=== PATIENT | male | born 1965 | race Caucasian/White ===

== ENCOUNTER 2019-03-01 12:04 | Emergency (ER) | payer OTHER ==
--- NOTE | 2019-03-01 12:56 | ED ---
Psych HPI - General Chief Complaint: Psychiatric Symptoms Stated Complaint: Mental health Time Seen by Provider: 03/01/19 12:11 Source: patient, family, RN notes reviewed, old records reviewed Mode of arrival: ambulatory - History of Present Illness Initial Comments: Patient is a 53-year-old male who presents emergency Department today with complaints of anxiety depression. Reports his diagnosis of anxiety or depression. His been having symptoms of ache or phobia for many years. Patient states that he feels hopeless due to his severe anxiety. Patient denies any chest pains or shortness of breath or nausea vomiting or physical complaints. He was seen today at [facility] and later by mobile crisis unit who encouraged Patient to come in for evaluation. He denies any specific suicidal plan. Patient denies any other symptoms. - Related Data Home Medications Medication Instructions Recorded Confirmed Sarah Back And Body 3 tab PO Q12H PRN 03/01/19 03/01/19 Allergies Allergy/AdvReac Type Severity Reaction Status Date / Time Penicillins Allergy Unknown Verified 03/01/19 12:50 Childhood Review of Systems ROS Statement: Those systems with pertinent positive or pertinent negative responses have been documented in the HPI. ROS Other: All systems not noted in ROS Statement are negative. Past Medical History Past Medical History: No Reported History History of Any Multi-Drug Resistant Organisms: None Reported Past Surgical History: Orthopedic Surgery Additional Past Surgical History / Comment(s): Left leg, right knee Past Psychological History: Anxiety, Depression Smoking Status: Current every day smoker Past Alcohol Use History: Abuse, Daily Past Drug Use History: Marijuana General Exam - General Exam Comments Initial Comments: 53-year-old male. Alert and oriented. No significant distress. Limitations: no limitations General appearance: alert, in no apparent distress Head exam: Present: atraumatic, normocephalic, normal inspection Eye exam: Present: normal appearance, PERRL, EOMI. Absent: scleral icterus, conjunctival injection, periorbital swelling ENT exam: Present: normal exam, mucous membranes moist Neck exam: Present: normal inspection. Absent: tenderness, meningismus, lymphadenopathy Respiratory exam: Present: normal lung sounds bilaterally. Absent: respiratory distress, wheezes, rales, rhonchi, stridor Cardiovascular Exam: Present: regular rate, normal rhythm, normal heart sounds. Absent: systolic murmur, diastolic murmur, rubs, gallop, clicks GI/Abdominal exam: Present: soft, normal bowel sounds. Absent: distended, tenderness, guarding, rebound, rigid Extremities exam: Present: normal inspection, full ROM, normal capillary refill. Absent: tenderness, pedal edema, joint swelling, calf tenderness Back exam: Present: normal inspection Neurological exam: Present: alert, oriented X3, CN II-XII intact Psychiatric exam: Present: normal affect, normal mood Skin exam: Present: warm, dry, intact, normal color. Absent: rash Course Vital Signs 03/01/19 12:06 Temperature 98.6 F Pulse Rate 119 H Respiratory 20 Rate Blood Pressure 147/99 O2 Sat by Pulse 98 Oximetry Medical Decision Making - Medical Decision Making Patient is 61-year-old male presents prescribed today with treatment plan a significant anxiety. He is here with his . He reports his been having significant depression related to how bad his anxiety is. At this time Patient has no suicidal intent. He reports occasionally having thoughts but has no plans. He states he has good support system at home. Patient was medically cleared and evaluated by EPS. Patient was deemed safe for outpatient treatment. Given referrals. They are hoping for medication for anxiety. Discussed giving the Patient one by mouth Ativan here. Further medications by primary care doctor or psychiatry. All questions answered return parameters were discussed. Disposition Clinical Impression: Anxiety, Agoraphobia Disposition: HOME SELF-CARE Condition: Good Instructions (If sedation given, give patient instructions): Mood Disorders (ED) Additional Instructions: Follow-up with primary care physician and outpatient referrals. Patient should return to emergency department if any alarming signs or symptoms occur. Is patient prescribed a controlled substance at d/c from ED?: No Referrals: None,Stated [Primary Care Provider] - 1-2 days Ellen Forte MD [STAFF PHYSICIAN] - 1-2 days Mario Mullen MD [STAFF PHYSICIAN] - 1-2 days Time of Disposition: 14:20
[2019-03-01] MEDS ORDERED: LORazepam 1 MG TAB PO STA (14:19)
[2019-03-01 14:42] VITALS: BP 140/86; PULSE 100; RESP 16; TEMP 98.2
== END 2019-03-01 14:41 | disposition home or self-care (01) ==
LOC: EC 12:04
DX: F41.9 Anxiety disorder, unspecified (principal); F40.00 Agoraphobia, unspecified; F32.9 Major depressive disorder, single episode, unspecified; F17.200 Nicotine dependence, unspecified, uncomplicated; Z88.0 Allergy status to penicillin
CPT/HCPCS: 99284

== ENCOUNTER 2019-04-08 08:23 | Emergency (ER) | payer OTHER ==
[2019-04-08] MEDS ORDERED: SODIUM BICARB 8.4% 50 ML SYR (1 MEQ/ML) ONE (08:26)
[2019-04-08] MEDS ORDERED: EPINEPHrine 10 ML SYRINGE (0.1 MG/ML) ONE (08:26)
--- NOTE | 2019-04-08 08:39 | ED ---
General Adult HPI - General Stated complaint: UNRESPONSIVE Time Seen by Provider: 04/08/19 08:25 Source: EMS, RN notes reviewed, old records reviewed Mode of arrival: EMS Limitations: altered mental status, physical limitation - History of Present Illness Initial comments: Patient is an unresponsive 54-year-old male presenting to the emergency Department as a priority 1, CPR by EMS. Patient is unresponsive and provides no history. Patient reportedly was last seen well by family at midnight when he reportedly went to bed. Patient is arriving with close and shoes on. CPR is underway. Patient has unable to provide any history. Patient was reportedly cool on scene - Related Data Home Medications Medication Instructions Recorded Confirmed Sarah Back And Body 3 tab PO Q12H PRN 03/01/19 03/01/19 Allergies Allergy/AdvReac Type Severity Reaction Status Date / Time Penicillins Allergy Unknown Verified 03/01/19 12:50 Childhood Review of Systems ROS Statement: Those systems with pertinent positive or pertinent negative responses have been documented in the HPI. ROS Other: All systems not noted in ROS Statement are negative. Limitations: ROS unobtainable due to patients medical condition Past Medical History Past Medical History: No Reported History History of Any Multi-Drug Resistant Organisms: None Reported Past Surgical History: Orthopedic Surgery Additional Past Surgical History / Comment(s): Left leg, right knee Past Psychological History: Anxiety, Depression Smoking Status: Current every day smoker Past Alcohol Use History: Abuse, Daily Past Drug Use History: Marijuana General Exam Limitations: altered mental status, physical limitation General appearance: obtunded Head exam: Present: atraumatic Eye exam: Present: other (Pupils are fixed and dilated) ENT exam: Present: normal oropharynx, other Neck exam: Present: normal inspection Respiratory exam: Present: other (No spontaneous breath sounds. Equal breath sounds with bagging insufflation) Cardiovascular Exam: Present: other (No spontaneous pulse. No heart sounds. Monitor with asystole) GI/Abdominal exam: Present: soft. Absent: distended, tenderness Extremities exam: Present: normal inspection Neurological exam: Present: other (Unresponsive) Expanded Eye Response: (1) no response Motor Response: (1) no motor response Verbal Response: (1) no verbal response Psychiatric exam: Present: other (Unresponsive) Skin exam: Absent: rash Course - Reevaluation(s) Reevaluation #1: 04/08/19 08:52 At 0834 patient was found to still have no pulse, no heart sounds, no spontaneous respirations, no response to pain, pupils fixed and dilated. Asystole on the monitor. Time of is 0834 AM. 04/08/19 09:11 Family was notified Case was discussed with medical records manager Ivanna and [place] [facility] [place] - Intubation Laryngoscope: Zelaya Size: 3 ET Tube Size: 8 Tube Secured Depth (cm): 22 Tube Secured Location: lips Tube Placement Confirmation: visualized tube passing through cords, equal breath sounds bilaterally, no breath sounds over epigastrium, confirmation by capnometry Patient Tolerated Procedure: well, no complications Disposition Clinical Impression: Cardiac arrest Disposition: Is patient prescribed a controlled substance at d/c from ED?: No Referrals: None,Stated [Primary Care Provider] - 1-2 days Time of Disposition: 09:12 Preliminary Cause of : Cardiopulmonary arrest
== END 2019-04-08 12:42 | disposition expired ==
LOC: EC 08:23
DX: I46.9 Cardiac arrest, cause unspecified (principal); F17.200 Nicotine dependence, unspecified, uncomplicated; Z88.0 Allergy status to penicillin
CPT/HCPCS: 31500; 99285